=== PATIENT | male | born 1955 | race Caucasian/White ===

== ENCOUNTER → 2022-06-13 09:28 | Outpatient (CLI) | payer OTHER ==
[~2022-06-13 09:28] MED LIST: NABUMETONE500 MG PO; PERCOCET 5/3251 TAB PO
== END | disposition home or self-care (01) ==
LOC: LAB 09:28
PROVIDERS: ATTEND Orthopaedic Surgery Hand Surgery
DX: Z20.822 Contact with and (suspected) exposure to COVID-19 (principal)